=== PATIENT | female | born 1945 | race Caucasian/White ===

== ENCOUNTER 2019-06-11 13:28 | Inpatient (IN) | payer MEDICARE, BC ==
[~2019-06-11] VITALS: Ht 165.1 cm; Wt 95.0 kg
[~2019-06-11 13:28] MED LIST: ASPI81TA45 PO; HYDR-36 PO; HYDR-3653 PO
[2019-06-11] MEDS ORDERED: ONDANSETRON 2MG/ML, 2ML ONE (13:51)
[2019-06-11] MEDS ORDERED: MORPHINE SULFATE 4 MG/ML, 1ML ONE ×2 (13:51→15:36)
[2019-06-11] MEDS: MORPHINE SULFATE 4 MG/ML, 1ML IVPush PRN ×2 (13:53→15:37)
[2019-06-11] MEDS ORDERED: ONDANSETRON 2MG/ML, 2ML IVPush ONE (14:00)
[2019-06-11 14:06] LABS: BASOPHILS # (AUTO) 0.01 x10^3/uL (0-0.1); BASOPHILS % (AUTO) 0 % (0-1); EOSINOPHILS # (AUTO) 0.09 x10^3/uL (0-0.4); EOSINOPHILS % (AUTO) 1 % (1-7); LYMPHOCYTES # (AUTO) 0.85 x10^3/uL (1-3.4); LYMPHOCYTES % (AUTO) 10 % (22-44); MD NO; MEAN CORPUSCULAR HEMOGLOBIN 33.5 pg (27.0-34.8); MEAN CORPUSCULAR HGB CONC 33.7 g/dL (32.4-35.8); MEAN CORPUSCULAR VOLUME 99.5 fL (80-100); MEAN PLATELET VOLUME 7.3 fL (7.4-10.4); MONOCYTES # (AUTO) 0.83 x10^3/uL (0.2-0.8); MONOCYTES % (AUTO) 10 % (2-9); NEUTROPHILS # (AUTO) 6.92 x10^3/uL (1.8-6.8); NEUTROPHILS % (AUTO) 80 % (42-75); PLATELET COUNT 165 x10^3/uL (130-400); RED BLOOD COUNT 3.35 x10^6/uL (3.82-5.3); RED CELL DISTRIBUTION WIDTH 13.7 % (9.6-15.2)
[2019-06-11 14:12] LABS: ALBUMIN 3.3 g/dL (3.4-5.0); ANION GAP 9 mmol/L (5-15); CALCIUM 9.1 mg/dL (8.5-10.1); CHLORIDE 99 mmol/L (98-107); CREATININE 0.53 mg/dL (0.55-1.02)
[2019-06-11] MEDS ORDERED: MAGNESIUM HYDROXIDE 8%, 30ML UDC PO PRN (14:30)
[2019-06-11] MEDS ORDERED: LORazepam 2 MG/ML, 1ML IV PRN (14:30)
[2019-06-11] MEDS ORDERED: ACETAMINOPHEN 325 MG TABLET PO PRN (14:30)
[2019-06-11] MEDS ORDERED: ONDANSETRON 2MG/ML, 2ML IV PRN (14:30)
[2019-06-11] MEDS ORDERED: PROMETHAZINE 25 MG/ML, 1ML IM PRN (14:30)
[2019-06-11] MEDS ORDERED: DIPHENHYDRAMINE 25 MG CAPSULE PO PRN (14:30)
[2019-06-11] MEDS: D5%-0.45% NACL 1,000 ML IV SCH ×2 (14:30→22:30)
[2019-06-11] MEDS ORDERED: ENOXAPARIN 40 MG/0.4 ML SQ ONE (16:00)
[2019-06-11] MEDS ORDERED: ENOXAPARIN 40 MG/0.4 ML ONE (18:23)
[2019-06-11] MEDS ORDERED: DOCUSATE 100 MG CAPSULE ONE (18:41)
[2019-06-11] MEDS ORDERED: HYDROcodone/APAP 10/325 MG TABLET ONE (18:41)
[2019-06-11] MEDS: HYDROcodone/APAP 10/325 MG TABLET PO PRN ×2 (18:44→23:22)
[2019-06-11] MEDS: DOCUSATE 100 MG CAPSULE PO SCH (18:44)
[2019-06-11] MEDS: morphine SULFATE 10 MG/ML, 1ML IV PRN ×2 (22:39→23:22)
[2019-06-12] MEDS: morphine SULFATE 10 MG/ML, 1ML IV PRN (01:58)
[2019-06-12 02:09] VITALS: BP 133/79
[2019-06-12] MEDS: HYDROcodone/APAP 10/325 MG TABLET PO PRN ×3 (04:34→20:15)
[2019-06-12] MEDS: D5%-0.45% NACL 1,000 ML IV SCH ×3 (04:35→21:00)
[2019-06-12] MEDS ORDERED: EPINEPHRINE 1 MG/ML, 1ML ONE (07:08)
[2019-06-12] MEDS ORDERED: VANCOMYCIN 1,000 MG ONE (07:08)
[2019-06-12] MEDS ORDERED: KETOROLAC 60 MG/2 ML ONE (07:08)
[2019-06-12] MEDS ORDERED: ROPIvacaine/PF 0.2%, 20 ML ONE (07:08)
[2019-06-12] MEDS ORDERED: SODIUM CHLORIDE 0.9% 50 ML ONE (07:08)
[2019-06-12] MEDS ORDERED: TRANEXAMIC ACID 100 MG/ML, 10ML ONE (07:08)
[2019-06-12] MEDS ORDERED: CEFAZOLIN 1,000 MG ONE (07:44)
[2019-06-12] MEDS ORDERED: ONDANSETRON 2MG/ML, 2ML ONE (07:44)
[2019-06-12] MEDS ORDERED: PROPOFOL 10 MG/ML, 20ML ONE (07:44)
[2019-06-12] MEDS ORDERED: ROCURONIUM 10MG/ML,5ML ONE (07:44)
[2019-06-12] MEDS ORDERED: DEXAMETHASONE 4 MG/ML, 1ML ONE (07:44)
[2019-06-12] MEDS ORDERED: METOPROLOL 1 MG/ML, 5ML ONE (07:44)
[2019-06-12] MEDS ORDERED: HEPARIN 1,000 UNITS/ML, 30ML ONE (07:44)
[2019-06-12] MEDS ORDERED: EPHEDRINE 50 MG/ML, 1ML ONE (07:44)
[2019-06-12] MEDS ORDERED: ONDANSETRON 2MG/ML, 2ML IV PRN (09:30)
[2019-06-12] MEDS ORDERED: METOPROLOL 1 MG/ML, 5ML IV PRN (09:30)
[2019-06-12] MEDS ORDERED: PROMETHAZINE 12.5 MG SUPP PR PRN (09:30)
[2019-06-12] MEDS ORDERED: hydrALAzine 20 MG/ML, 1ML IV PRN (09:30)
[2019-06-12] MEDS ORDERED: LABETALOL 5 MG/ML SYR. (IV ONLY) IV PRN (09:30)
[2019-06-12] MEDS ORDERED: ACETAMINOPHEN 325 MG TABLET PO PRN (09:30)
[2019-06-12] MEDS ORDERED: OXYcodone 5 MG/5 ML ORAL.SOL UDC PO PRN (09:30)
[2019-06-12] MEDS ORDERED: HYDROmorphone 2 MG/ML, 1ML IVPush PRN (09:30)
[2019-06-12] MEDS ORDERED: MEPERIDINE/PF 25MG/ML,1ML IVPush PRN (09:30)
[2019-06-12] MEDS ORDERED: OXYcodone 5 MG/5 ML ORAL.SOL UDC ONE (09:35)
[2019-06-12] MEDS ORDERED: FENTANYL PF 100 MCG/2ML ONE (09:35)
[2019-06-12] MEDS: FENTANYL PF 100 MCG/2ML IV PRN ×2 (09:55→10:12)
[2019-06-12] MEDS ORDERED: CEFAZOLIN 1,000 MG IM SCH (10:00)
[2019-06-12 14:31] VITALS: BP 106/63
[2019-06-12] MEDS: DOCUSATE 100 MG CAPSULE PO SCH ×2 (15:57→20:15)
[2019-06-12] MEDS ORDERED: SODIUM CHLORIDE 0.9%, 500ML IVBOLUS ONE (17:30)
[2019-06-12] MEDS ORDERED: CEFAZOLIN 1,000 MG IVPB SCH (18:00)
[2019-06-12 19:56] VITALS: BP 106/70
[2019-06-12] MEDS: CEFAZOLIN PMX 1GM/50ML 50 ML IV SCH (20:15)
[2019-06-13] MEDS: HYDROcodone/APAP 10/325 MG TABLET PO PRN ×6 (01:28→23:02)
[2019-06-13] MEDS: CEFAZOLIN PMX 1GM/50ML 50 ML IV SCH ×2 (01:29→10:32)
[2019-06-13 02:04] VITALS: BP 104/61
[2019-06-13] MEDS: D5%-0.45% NACL 1,000 ML IV SCH ×3 (06:01→21:00)
[2019-06-13 08:32] VITALS: BP 113/75
[2019-06-13 10:26] LABS: ANION GAP 5 mmol/L (5-15); CALCIUM 8.5 mg/dL (8.5-10.1); CHLORIDE 103 mmol/L (98-107); CREATININE 0.53 mg/dL (0.55-1.02)
[2019-06-13] MEDS: DOCUSATE 100 MG CAPSULE PO SCH ×2 (10:32→22:04)
[2019-06-13] MEDS: ENOXAPARIN 40 MG/0.4 ML SQ SCH (10:32)
[2019-06-13 10:38] LABS: BASOPHILS # (AUTO) 0.01 x10^3/uL (0-0.1); BASOPHILS % (AUTO) 0 % (0-1); EOSINOPHILS # (AUTO) 0.11 x10^3/uL (0-0.4); EOSINOPHILS % (AUTO) 2 % (1-7); LYMPHOCYTES # (AUTO) 1.03 x10^3/uL (1-3.4); LYMPHOCYTES % (AUTO) 17 % (22-44); MD NO; MEAN CORPUSCULAR HEMOGLOBIN 33.5 pg (27.0-34.8); MEAN CORPUSCULAR HGB CONC 33.4 g/dL (32.4-35.8); MEAN CORPUSCULAR VOLUME 100.4 fL (80-100); MEAN PLATELET VOLUME 7.2 fL (7.4-10.4); MONOCYTES # (AUTO) 0.51 x10^3/uL (0.2-0.8); MONOCYTES % (AUTO) 8 % (2-9); NEUTROPHILS # (AUTO) 4.58 x10^3/uL (1.8-6.8); NEUTROPHILS % (AUTO) 74 % (42-75); PLATELET COUNT 163 x10^3/uL (130-400); RED BLOOD COUNT 2.54 x10^6/uL (3.82-5.3)
[2019-06-13 13:13] VITALS: BP 116/62
[2019-06-13 19:23] VITALS: BP 131/80
[2019-06-14 01:12] VITALS: BP 145/78
[2019-06-14] MEDS: HYDROcodone/APAP 10/325 MG TABLET PO PRN ×3 (03:05→16:40)
[2019-06-14] MEDS: D5%-0.45% NACL 1,000 ML IV SCH ×2 (05:00→12:38)
[2019-06-14 07:13] VITALS: BP 150/89
[2019-06-14] MEDS: DOCUSATE 100 MG CAPSULE PO SCH (07:52)
[2019-06-14] MEDS: ENOXAPARIN 40 MG/0.4 ML SQ SCH (11:01)
[2019-06-14 13:27] VITALS: BP 122/73
[2019-06-14 18:39] VITALS: BP 114/72
== END 2019-06-14 18:49 | disposition home or self-care (01) | DRG 466 ==
LOC: MERGE 13:28 → EDBD 13:28 → ED 15:14 → EDIP 15:15 → 4NE 21:26
PROVIDERS: ADMIT Orthopaedic Surgery; ATTEND Orthopaedic Surgery
PROC: 0SPS0JZ Removal of Synthetic Substitute from Left Hip Joint, Femoral Surface, Open Approach (ICD-10-PCS; 2019-06-12)
PROC: 0QS704Z Reposition Left Upper Femur with Internal Fixation Device, Open Approach (ICD-10-PCS; 2019-06-12)
PROC: 0SRS03Z Replacement of Left Hip Joint, Femoral Surface with Ceramic Synthetic Substitute, Open Approach (ICD-10-PCS; principal; 2019-06-12 07:30)
DX: T84.031A Mechanical loosening of internal left hip prosthetic joint, initial encounter (principal); S72.142A Displaced intertrochanteric fracture of left femur, initial encounter for closed fracture; M97.02XA Periprosthetic fracture around internal prosthetic left hip joint, initial encounter; W18.39XA Other fall on same level, initial encounter; Y93.89 Activity, other specified; Y92.89 Other specified places as the place of occurrence of the external cause; Y99.8 Other external cause status; I10 Essential (primary) hypertension; Z88.8 Allergy status to other drugs, medicaments and biological substances; Y79.2 Prosthetic and other implants, materials and accessory orthopedic devices associated with adverse incidents; W01.0XXA Fall on same level from slipping, tripping and stumbling without subsequent striking against object, initial encounter
CPT/HCPCS: 36415; 72170; 80048; 82040; 85014; 85018; 85025; 86850; 86900; 86923; 96372; 96374; 96375; 96376; G0378; J0171; J0690; J1100; J1644; J1650; J1885; J2405; J2704; J2795; J3010; J3370; C1776; J2270; J7040